=== PATIENT | male | born 1960 | race African-American/Black ===

== ENCOUNTER 2017-04-11 23:24 | Emergency (ER) | payer BC ==
[~2017-04-11] VITALS: Ht 175.3 cm; Wt 101.2 kg
[2017-04-11 23:37] VITALS: BP_SYST 148
--- NOTE | 2017-04-11 23:37 | NUR ---
Patient to ER bed 8 to gown for evaluation. Side rails up. Report given to Guido KELLOGG.
--- NOTE | 2017-04-12 00:01 | NUR ---
Patient brought in with complaining of dizziness starting today with left eye swelling, nausea and 1 episode of vomiting this morning. was seen in Urgent care for evaluation and was sent home. Patient had another episode of dizziness tonight and presented to ED. Denies any other complaints/injuries per patient or as noted. Will continue to monitor.
--- NOTE | 2017-04-12 00:20 | NUR ---
EKG performed at by [facility]. Physician given copy of EKG for review.
--- NOTE | 2017-04-12 00:46 | NUR ---
Patient transported to radiology via Wheelchair, accompanied by Arlen
--- NOTE | 2017-04-12 01:01 | NUR ---
Returned for Radiology.
[2017-04-12 01:08] LABS: BASOPHILS # (AUTO) 0.1 K/uL (0.0-0.2); BASOPHILS % (AUTO) 0.5 % (0.0-2.0); EOSINOPHILS # (AUTO) 0.4 K/uL (0.0-0.4); EOSINOPHILS % (AUTO) 4.1 % (0.0-4.0); HEMATOCRIT 39.5 % (36-54); HEMOGLOBIN 12.4 g/dL (14.0-18.0); LYMPHOCYTES # (AUTO) 2.3 K/uL (1.0-5.5); MEAN CORPUSCULAR HEMOGLOBIN 25 pg (27-31); MEAN CORPUSCULAR HGB CONC 31 % (32-36); MEAN CORPUSCULAR VOLUME 79 fL (79.0-98.0); MONOCYTES % (AUTO) 8.7 % (1.7-9.3); NEUTROPHILS # (AUTO) 7.1 K/uL (1.8-7.7); NEUTROPHILS % (AUTO) 65.7 % (40.0-70.0); PLATELET COUNT (AUTO) 394 K/uL (130-430); RED CELL DISTRIBUTION WIDTH 14.2 % (9.0-15.0); WHITE BLOOD COUNT (AUTO) 10.9 K/uL (4.8-10.8)
[2017-04-12 01:11] LABS: CALCIUM 8.4 mg/dL (8.4-11.0); CREATININE 1.2 mg/dL (0.55-1.30); POTASSIUM 3.6 mmol/L (3.5-5.1)
[2017-04-12 01:30] LABS: TOTAL BILIRUBIN 0.4 mg/dL (0.0-1.0)
--- NOTE | 2017-04-12 01:30 | NUR ---
Patient updated still waiting for lab work. Voiced no complaints
[2017-04-12 02:17] VITALS: BP_SYST 148
--- NOTE | 2017-04-12 02:17 | NUR ---
Patient given written and verbal discharge instructions and verbalizes understanding. ER MD discussed with patient the results and treatment provided. Patient in stable condition. ID arm band removed. IV catheter removed intact and dressing applied, no active bleeding. Rx of Meclizine and Zofran given. Patient educated on pain management and to follow up with PMD in 2-3 days. Pain Scale 0/10 Opportunity for questions provided and answered.
== END 2017-04-12 02:17 | disposition home or self-care (01) ==
LOC: SED 23:24
DX: H81.10 Benign paroxysmal vertigo, unspecified ear (principal); I10 Essential (primary) hypertension; M06.9 Rheumatoid arthritis, unspecified
CPT/HCPCS: 36415; 70450-TC; 80053; 83690-TC; 83880; 84484; 85025; 93005; 99285